=== PATIENT | female | born 1940 | race Caucasian/White ===

== ENCOUNTER → 2017-01-18 | Outpatient (CLI) | payer MEDICARE, BC ==
[~2017-01-18] MED LIST: ASPIR-LOW81 MG PO; ASPIRIN E.C. 8181 MG PO; ATORVASTATIN; AUGMENTIN 875 M1 TAB PO; BLOOD PRESSURE MED; CLINDAMYCIN HC300 MG PO; COMBIRESP IH; EFFEXOR 3737.5 MG/TA PO; EFFEXOR XR75 MG/CAP PO; FLAGYL 250250 MG/TAB PO; LIPITOR20 MG PO; LOTREL 10 MG-201 CAP PO; METOPROLOL25 MG PO; NORCO 325 MG-51 TAB PO; TOPROL XL 25MG25 MG PO; XANAX .25M0.25 MG/TA PO
== END ==
LOC: MC.RAD 10:39
DX: Z12.31 Encounter for screening mammogram for malignant neoplasm of breast (principal)

== ENCOUNTER → 2018-01-26 | Outpatient (CLI) | payer MEDICARE, BC | LOC: MC.RAD 13:42 | DX: Z12.31 Encounter for screening mammogram for malignant neoplasm of breast (principal); Z98.890 Other specified postprocedural states ==

== ENCOUNTER → 2019-03-24 | Outpatient (CLI) | payer MEDICARE, BC | LOC: MC.RAD 13:34 | DX: Z12.31 Encounter for screening mammogram for malignant neoplasm of breast (principal); Z98.890 Other specified postprocedural states; Z98.82 Breast implant status; Z92.3 Personal history of irradiation; Z86.000 Personal history of in-situ neoplasm of breast ==

== ENCOUNTER → 2020-04-22 | Outpatient (CLI) | payer MEDICARE, BC | LOC: MC.RAD 03-26 10:45 | DX: Z12.31 Encounter for screening mammogram for malignant neoplasm of breast (principal) ==

== ENCOUNTER → 2021-08-05 | Outpatient (CLI) | payer MEDICARE, BC | LOC: MC.RAD 09:23 | DX: Z12.31 Encounter for screening mammogram for malignant neoplasm of breast (principal) ==